=== PATIENT | male | born 1955 | race Caucasian/White ===

== ENCOUNTER 2017-11-12 13:09 | Emergency (ER) | payer OTHER ==
[~2017-11-12] VITALS: Ht 185.4 cm; Wt 74.8 kg
[~2017-11-12 13:09] MED LIST: HYDR25TA9 PO
[2017-11-12 13:45] LABS: BASO # 0.1 x10^3/uL (0.0-0.2); BASO % 1 % (0-3); EOS # 0.1 x10^3/uL (0.0-0.7); EOS % 1 % (0-3); HEMATOCRIT 41.2 % (39.0-53.0); HEMOGLOBIN 14.3 g/dL (13.0-17.5); LYMPH # 2.1 x10^3/uL (1.0-4.8); LYMPH % 32 % (24-48); MEAN CORPUSCULAR HEMOGLOBIN 32 pg (25-35); MEAN CORPUSCULAR HGB CONC 35 g/dL (31-37); MEAN CORPUSCULAR VOLUME 93 fL (79-100); MONO # 0.6 x10^3/uL (0.0-1.1); MONO % 9 % (0-9); NEUT # 3.7 x10^3uL (1.8-7.7); NEUT % 57 % (31-73); PLATELET COUNT 230 x10^3/uL (140-400); RED BLOOD COUNT 4.44 x10^6/uL (4.30-5.70); RED CELL DISTRIBUTION WIDTH 12.9 % (11.5-14.5); WHITE BLOOD COUNT 6.5 x10^3/uL (4.0-11.0)
[2017-11-12 14:06] LABS: CALCIUM 8.9 mg/dL (8.5-10.1); CREATININE 1.1 mg/dL (0.7-1.3); GFR 67.6; POTASSIUM 3.7 mmol/L (3.5-5.1)
[2017-11-12 14:09] LABS: ALBUMIN 3.7 g/dL (3.4-5.0); TOTAL BILIRUBIN 0.3 mg/dL (0.2-1.0); TOTAL PROTEIN 7.4 g/dL (6.4-8.2)
[2017-11-12 14:10] LABS: BILIRUBIN,URINE NEGATIVE (NEG); CLARITY,URINE CLEAR; COLOR,URINE YELLOW; NITRITE,URINE NEGATIVE (NEG); PROTEIN,URINE NEGATIVE (NEG-TRACE); UROBILINOGEN,URINE 0.2 mg/dL (0.2 mg/dL)
[2017-11-12 14:18] LABS: BACTERIA,URINE 0 /HPF (0-FEW); HYALINE CASTS, URINE OCCASIONAL /HPF; RBC,URINE 0 /HPF (0-2); SQUAMOUS EPITHELIAL CELL,UR OCC /LPF; WBC,URINE 0 /HPF (0-4)
--- NOTE | 2017-11-12 14:21 | RAD ---
EXAM: Head CT without contrast. HISTORY: Seizure. TECHNIQUE: Computed tomographic images of the head were obtained without contrast. *One or more of the following individualized dose reduction techniques were utilized for this examination: 1. Automated exposure control. 2. Adjustment of the mA and/or kV according to patient size. 3. Use of iterative reconstruction technique. COMPARISON: Brain MRI dated 03/08/2016. FINDINGS: There is no acute or subacute extra-axial or intraparenchymal hemorrhage. There is no mass effect or midline shift. There is no hydrocephalus. There are areas of decreased attenuation within the cerebral white matter, nonspecific and likely related to chronic small vessel disease. There is minimal paranasal sinus mucosal thickening. The mastoid air cells are clear. The orbits are unremarkable. No suspicious calvarial lesion is seen. IMPRESSION: 1. No acute intracranial finding. 2. Subtle areas of hypodensity within the cerebral white matter, a nonspecific finding likely due to chronic small vessel disease. Electronically signed by: Celsa Tian MD (11/12/2017 2:18 PM) [place] [id number]
[2017-11-12 14:24] LABS: AMPHETAMINE/METHAMPHETAMINE NEG (NEG); BARBITURATES NEG (NEG); BENZODIAZEPINES NEG (NEG); CANNABINOIDS NEG (NEG); COCAINE NEG (NEG); METHADONE NEG (NEG); OPIATES NEG (NEG); PHENCYCLIDINE NEG (NEG)
[2017-11-12 14:35] VITALS: BP 139/89
--- NOTE | 2017-11-12 14:58 | PHYS DOC ---
Past Medical History Past Medical History: Hypertension, Seizure Past Surgical History: No Surgical History Alcohol Use: Heavy Additional Information: DRINKS 3 TO 4 BEERS DAILY Drug Use: None Adult General Chief Complaint Chief Complaint: SEIZURE HPI HPI Patient is a 61 year old [f__sex] who presents with [] Review of Systems Review of Systems Constitutional: Denies fever or chills [] Eyes: Denies change in visual acuity, redness, or eye pain [] HENT: Denies nasal congestion or sore throat [] Respiratory: Denies cough or shortness of breath [] Cardiovascular: No additional information not addressed in HPI [] GI: Denies abdominal pain, nausea, vomiting, bloody stools or diarrhea [] : Denies dysuria or hematuria [] Musculoskeletal: Denies back pain or joint pain [] Integument: Denies rash or skin lesions [] Neurologic: Denies headache, focal weakness or sensory changes [] Endocrine: Denies polyuria or polydipsia [] All other systems were reviewed and found to be within normal limits, except as documented in this note. Allergies Allergies Allergies Coded Allergies Type Severity Reaction Last Updated Verified No Known Drug Allergies 03/16/16 No Physical Exam Physical Exam Constitutional: Well developed, well nourished, no acute distress, non-toxic appearance. [] HENT: Normocephalic, atraumatic, bilateral external ears normal, oropharynx moist, no oral exudates, nose normal. [] Eyes: PERRLA, EOMI, conjunctiva normal, no discharge. [] Neck: Normal range of motion, no tenderness, supple, no stridor. [] Cardiovascular:Heart rate regular rhythm, no murmur [] Lungs & Thorax: Bilateral breath sounds clear to auscultation [] Abdomen: Bowel sounds normal, soft, no tenderness, no masses, no pulsatile masses. [] Skin: Warm, dry, no erythema, no rash. [] Back: No tenderness, no CVA tenderness. [] Extremities: No tenderness, no cyanosis, no clubbing, ROM intact, no edema. [] Neurologic: Alert and oriented X 3, normal motor function, normal sensory function, no focal deficits noted. [] Psychologic: Affect normal, judgement normal, mood normal. [] Current Patient Data Vital Signs Vital Signs Date Time Temp Pulse Resp B/P (MAP) Pulse Ox O2 Delivery O2 Flow Rate FiO2 8/21/18 13:09 98.0 101 16 148/91 (110) 96 Room Air 98.0 Lab Values Laboratory Tests Test 11/12/17 13:20 11/12/17 14:00 White Blood Count 6.5 x10^3/uL (4.0-11.0) Red Blood Count 4.44 x10^6/uL (4.30-5.70) Hemoglobin 14.3 g/dL (13.0-17.5) Hematocrit 41.2 % (39.0-53.0) Mean Corpuscular Volume 93 fL (79-100) Mean Corpuscular Hemoglobin 32 pg (25-35) Mean Corpuscular Hemoglobin Concent 35 g/dL (31-37) Red Cell Distribution Width 12.9 % (11.5-14.5) Platelet Count 230 x10^3/uL (140-400) Neutrophils (%) (Auto) 57 % (31-73) Lymphocytes (%) (Auto) 32 % (24-48) Monocytes (%) (Auto) 9 % (0-9) Eosinophils (%) (Auto) 1 % (0-3) Basophils (%) (Auto) 1 % (0-3) Neutrophils # (Auto) 3.7 x10^3uL (1.8-7.7) Lymphocytes # (Auto) 2.1 x10^3/uL (1.0-4.8) Monocytes # (Auto) 0.6 x10^3/uL (0.0-1.1) Eosinophils # (Auto) 0.1 x10^3/uL (0.0-0.7) Basophils # (Auto) 0.1 x10^3/uL (0.0-0.2) Sodium Level 141 mmol/L (136-145) Potassium Level 3.7 mmol/L (3.5-5.1) Chloride Level 103 mmol/L (98-107) Carbon Dioxide Level 28 mmol/L (21-32) Anion Gap 10 (6-14) Blood Urea Nitrogen 13 mg/dL (8-26) Creatinine 1.1 mg/dL (0.7-1.3) Estimated GFR (Cockcroft-Gault) 67.6 BUN/Creatinine Ratio 12 (6-20) Glucose Level 96 mg/dL (70-99) Calcium Level 8.9 mg/dL (8.5-10.1) Total Bilirubin 0.3 mg/dL (0.2-1.0) Aspartate Amino Transferase (AST) 22 U/L (15-37) Alanine Aminotransferase (ALT) 23 U/L (16-63) Alkaline Phosphatase 69 U/L (46-116) Total Protein 7.4 g/dL (6.4-8.2) Albumin 3.7 g/dL (3.4-5.0) Albumin/Globulin Ratio 1.0 (1.0-1.7) Urine Collection Type Unknown Urine Color Yellow Urine Clarity Clear Urine pH 6.0 Urine Specific [place] 1.010 Urine Protein Negative mg/dL (NEG-TRACE) Urine Glucose (UA) Negative mg/dL (NEG) Urine Ketones (Stick) Negative mg/dL (NEG) Urine Blood Negative (NEG) Urine Nitrite Negative (NEG) Urine Bilirubin Negative (NEG) Urine Urobilinogen Dipstick 0.2 mg/dL (0.2 mg/dL) Urine Leukocyte Esterase Negative (NEG) Urine RBC 0 /HPF (0-2) Urine WBC 0 /HPF (0-4) Urine Squamous Epithelial Cells Occ /LPF Urine Bacteria 0 /HPF (0-FEW) Urine Hyaline Casts Occasional /HPF Urine Opiates Screen Neg (NEG) Urine Methadone Screen Neg (NEG) Urine Barbiturates Neg (NEG) Urine Phencyclidine Screen Neg (NEG) Urine Amphetamine/Methamphetamine Neg (NEG) Urine Benzodiazepines Screen Neg (NEG) Urine Cocaine Screen Neg (NEG) Urine Cannabinoids Screen Neg (NEG) Urine Ethyl Alcohol Neg (NEG) Laboratory Tests 11/12/17 13:20 Laboratory Tests 11/12/17 13:20 EKG EKG [] Radiology/Procedures Radiology/Procedures [] PATIENT: DONOVAN FRANCIS ACCOUNT: [id number] : 1955 LOCATION: ER AGE: 61 SEX: M EXAM STATUS: REG ER ORD. PHYSICIAN: JUANCARLOS MANDEL APRN REASON: seizure PROCEDURE: CT HEAD WO CONTRAST EXAM: Head CT without contrast. HISTORY: Seizure. TECHNIQUE: Computed tomographic images of the head were obtained without contrast. *One or more of the following individualized dose reduction techniques were utilized for this examination: 1. Automated exposure control. 2. Adjustment of the mA and/or kV according to patient size. 3. Use of iterative reconstruction technique. COMPARISON: Brain MRI dated 03/08/2016. FINDINGS: There is no acute or subacute extra-axial or intraparenchymal hemorrhage. There is no mass effect or midline shift. There is no hydrocephalus. There are areas of decreased attenuation within the cerebral white matter, nonspecific and likely related to chronic small vessel disease. There is minimal paranasal sinus mucosal thickening. The mastoid air cells are clear. The orbits are unremarkable. No suspicious calvarial lesion is seen. IMPRESSION: 1. No acute intracranial finding. 2. Subtle areas of hypodensity within the cerebral white matter, a nonspecific finding likely due to chronic small vessel disease. Electronically signed by: Celsa Mcneil MD (11/12/2017 2:18 PM) [facility] DICTATED and SIGNED BY: CELSA MCNEIL MD DATE: 11/12/17 1417 Course & Med Decision Making Course & Med Decision Making Pertinent Labs and Imaging studies reviewed. (See chart for details) [] Dragon Disclaimer Dragon Disclaimer This electronic medical record was generated, in whole or in part, using a voice recognition dictation system. Departure Departure Impression: Primary Impression: Seizures Disposition: 01 HOME, SELF-CARE Condition: STABLE Referrals: NO PCP (PCP) SHELLY MARCELINO MD Patient Instructions: Seizure, Adult Additional Instructions: Do not drive or operate heavy machinery. Follow up with neurology for further evaluation. If worsening call 911 or return to the emergency department immediately. JUANCARLOS MANDEL APRN Nov 12, 2017 14:58
--- NOTE | 2017-11-12 18:21 | EKG ---
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
== END 2017-11-12 15:10 | disposition left against medical advice (07) ==
LOC: ER 13:09
DX: R56.9 Unspecified convulsions (principal); I10 Essential (primary) hypertension; F10.10 Alcohol abuse, uncomplicated; Y90.9 Presence of alcohol in blood, level not specified
CPT/HCPCS: 36415; 70450; 80053; 80307; 81001; 85025; 93005; 99285-25; G0479

== ENCOUNTER → 2018-01-01 | Outpatient (CLI) | payer OTHER ==
[~2018-01-01] MED LIST changes: +GADOBUTROL 7.5 MMOL/7.5 ML VIAL IV ONE
--- NOTE | 2018-01-01 11:54 | KCIC ---
MRI of the Brain without and with Contrast 01/01/2018 Clinical History: Seizures. Memory loss. Technique: Unenhanced T1-weighted sagittal and axial and FLAIR, T2-weighted, gradient echo and diffusion-weighted axial images of the brain were obtained. Thin section FLAIR and T2-weighted coronal images of the temporal lobes were obtained. After the intravenous administration of 6 cc of Gadavist, enhanced T1-weighted axial and coronal images of the brain were obtained. Findings: Comparison is made to the patient's CT scan of the head dated 11/12/2017. Additional comparison is made to patient's previous MRI of the brain dated 03/08/2016. There is generalized parenchymal atrophy. Patchy, confluent and multiple small focal areas of abnormally increased signal intensity are seen within the periventricular and subcortical white matter of both cerebral hemispheres along with the car on the FLAIR and T2-weighted images consistent with areas of small vessel ischemic disease. These have not significantly changed. No acute parenchymal abnormality is seen. No abnormal area of contrast enhancement is noted. No extra-axial fluid collection is seen. There is no MRI evidence of acute ischemia/infarction. Images through the temporal lobes are within normal limits. Moderate to severe mucosal thickening in seen scattered throughout the paranasal sinuses. There are small to moderate-sized bilateral mastoid effusions, right greater than left. Normal flow voids are seen within the major vascular structures surrounding the brain parenchyma. Impression: No acute parenchymal abnormality is seen. Electronically signed by: Kurtis Son MD (01/01/2018 11:51 AM) [id number]
== END | disposition home or self-care (01) ==
LOC: KCIC MRI 09:28
PROVIDERS: ATTEND Psychiatry & Neurology Neurology with Special Qualifications in Child Neurology
DX: G31.9 Degenerative disease of nervous system, unspecified (principal); G40.309 Generalized idiopathic epilepsy and epileptic syndromes, not intractable, without status epilepticus; R41.3 Other amnesia
CPT/HCPCS: 70553; A9585